=== PATIENT | male | born 1960 | race Caucasian/White ===

== ENCOUNTER 2022-09-07 17:20 | Inpatient (IN) | payer OTHER ==
[2022-09-07 17:53] VITALS: RESP 18; TEMP 97.7; BMI 23.6
[2022-09-07] MEDS ORDERED: BENZOCAINE/MENTHOL (CHLORASEPTIC ) LOZENGE MM PRN (18:57)
[2022-09-07] MEDS ORDERED: MAGNESIUM CITRATE 300 ML BOTTLE PO PRN (18:57)
[2022-09-07] MEDS ORDERED: chlordiazePOXIDE HCL 25 MG CAPSULE PO PRN (18:57)
[2022-09-07] MEDS ORDERED: METHOCARBAMOL 500 MG TABLET PO PRN (18:57)
[2022-09-07] MEDS ORDERED: NICOTINE 10 MG CARTRIDGE (INHALER) IH PRN (18:57)
[2022-09-07] MEDS ORDERED: MAGNESIUM HYDROX 2400MG/30ML ORAL SUSPENSION 30 ML CUP PO PRN (18:57)
[2022-09-07] MEDS ORDERED: DICYCLOMINE HCL 10 MG CAPSULE PO PRN (18:57)
[2022-09-07] MEDS ORDERED: ONDANSETRON *ODT* 4 MG TABLET SL PRN (18:57)
[2022-09-07] MEDS ORDERED: hydrOXYzine PAMOATE 25 MG CAPSULE (FP) PO PRN (18:57)
[2022-09-07] MEDS ORDERED: MAG HYDROX/AL HYDROX/SIMETH 30 ML UNIT-DOSE CUP PO PRN (18:57)
[2022-09-07] MEDS ORDERED: LOPERAMIDE HCL 2 MG CAPSULE PO PRN (18:57)
[2022-09-07] MEDS ORDERED: chlordiazePOXIDE HCL 25 MG CAPSULE ONE (20:32)
[2022-09-07] MEDS ORDERED: THIAMINE HCL 100 MG TABLET (FP) PO SCH (22:00)
[2022-09-07] MEDS ORDERED: MELATONIN 5 MG TABLETS PO SCH (22:00)
[2022-09-07] MEDS: chlordiazePOXIDE HCL 25 MG CAPSULE PO SCH (22:41)
[2022-09-08 05:17] VITALS: BP 153/114; PULSE 114
[2022-09-08] MEDS: chlordiazePOXIDE HCL 25 MG CAPSULE PO SCH ×2 (06:24→10:53)
[2022-09-08] MEDS ORDERED: NICOTINE 7 MG/24 HOURS TOPICAL PATCH TD SCH (10:00)
[2022-09-08] MEDS ORDERED: PRENATAL VITAMINS W/ FOLIC ACID TABLET (FP) PO SCH (10:00)
[2022-09-09] MEDS ORDERED: chlordiazePOXIDE HCL 25 MG CAPSULE PO SCH (05:00)
[2022-09-10] MEDS ORDERED: chlordiazePOXIDE HCL 10 MG CAPSULE PO PRN
[2022-09-10] MEDS ORDERED: chlordiazePOXIDE HCL 10 MG CAPSULE PO SCH (05:00)
[2022-09-11] MEDS ORDERED: chlordiazePOXIDE HCL 10 MG CAPSULE PO SCH (05:00)
[2022-09-12] MEDS ORDERED: chlordiazePOXIDE HCL 10 MG CAPSULE PO ONE (05:00)
== END 2022-09-08 15:35 | disposition short-term general hospital (02) | DRG 775 ==
LOC: YASAS 17:20 → Y6N 20:22
PROVIDERS: ADMIT Allergy & Immunology; ATTEND Surgery
PROC: HZ2ZZZZ Detoxification Services for Substance Abuse Treatment (ICD-10-PCS; principal; 2022-09-07)
DX: F10.230 Alcohol dependence with withdrawal, uncomplicated (principal); F17.210 Nicotine dependence, cigarettes, uncomplicated; I10 Essential (primary) hypertension; M54.50 Low back pain, unspecified; G89.29 Other chronic pain; R29.6 Repeated falls; S59.901A Unspecified injury of right elbow, initial encounter; S69.92XA Unspecified injury of left wrist, hand and finger(s), initial encounter; W19.XXXA Unspecified fall, initial encounter; Y92.230 Patient room in hospital as the place of occurrence of the external cause; Y93.89 Activity, other specified; Z91.81 History of falling
CPT/HCPCS: C9803-CS; U0003; U0005

== ENCOUNTER 2022-09-08 06:06 | Inpatient (IN) | payer OTHER ==
[2022-09-08 06:18] VITALS: BMI 24.3
[2022-09-08] MEDS ORDERED: chlordiazePOXIDE HCL 25 MG CAPSULE ONE ×3 (08:04→20:59)
[2022-09-08] MEDS ORDERED: chlordiazePOXIDE HCL 25 MG CAPSULE PO ONE ×3 (09:08→15:08)
[2022-09-08 09:35] LABS: BASO % 2.1 % (0-2.0); EOS % 0.4 % (0-4.5); HEMATOCRIT 32.2 % (35.4-49); HEMOGLOBIN 10.9 GM/dL (11.7-16.9); LYMPH % 11.9 % (8-40); MCH 34.2 pg (25.7-33.7); MCHC 33.9 g/dl (32.0-35.9); MEAN CELL VOLUME 100.7 fl (80-96); MEAN PLT VOLUME 9.7 fl (7.5-11.1); MONO % 15.9 % (3.8-10.2); NEUT % 69.7 % (42.8-82.8); PLATELET COUNT 202 10^3/uL (134-434)
[2022-09-08 09:42] LABS: INR 1.02 (0.83-1.09); PROTHROMBIN TIME (PATIENT) 11.7 SEC (9.7-13.0)
[2022-09-08 09:45] LABS: ACTIVATED PTT 34.8 SECONDS (25.2-36.5)
[2022-09-08 09:56] LABS: ALBUMIN 4.2 g/dl (3.4-5.0); BLOOD UREA NITROGEN 55.8 mg/dL (7-18); CALCIUM 9.6 mg/dL (8.5-10.1); MAGNESIUM 2.5 mg/dL (1.8-2.4)
[2022-09-08 09:59] LABS: CREATININE 1.7 mg/dL (0.55-1.3); PHOSPHOROUS 3.3 mg/dL (2.5-4.9)
[2022-09-08 10:00] LABS: BILIRUBIN,TOTAL 1.4 mg/dL (0.2-1)
[2022-09-08 10:02] LABS: EPI CELLS 4 /uL (0-25.1); HYALINE CASTS 2 /uL (0-3.1); TOT PROT 8.8 g/dl (6.4-8.2); URINE BACTERIA 3 /uL (0-1359); URINE RBC 35 /uL (0-23.9); URINE WBC 3 /uL (0-25.8)
[2022-09-08 10:06] LABS: URINE APPEARANCE Clear; URINE BILIRUBIN 1+ (NEGATIVE); URINE COLOR Yellow; URINE GLUCOSE (UA) Negative (NEGATIVE); URINE KETONE 1+ (NEGATIVE); URINE LEUK ESTERASE Negative (NEGATIVE); URINE NITRITE Negative (NEGATIVE); URINE PROTEIN 1+ (NEGATIVE)
[2022-09-08] MEDS ORDERED: diazePAM CARPU-JECT 10 MG/2 ML DISP.SYRIN ONE ×2 (11:12→11:14)
[2022-09-08] MEDS ORDERED: diazePAM CARPU-JECT 10 MG/2 ML DISP.SYRIN IVPUSH ONE (12:39)
[2022-09-08 13:10] VITALS: TEMP 98
[2022-09-08] MEDS ORDERED: LACTATED RINGERS SOLUTION 1000 ML INFUS.BAG IV ONE (15:05)
[2022-09-08] MEDS ORDERED: FOLIC ACID INJECTION - 1 MG, THIAMINE HCL 100 MG, MULTIVIT INJECTION ADULT 10 ML in SOD... IVPB ONE (15:06)
[2022-09-08] MEDS ORDERED: chlordiazePOXIDE HCL 25 MG CAPSULE PO SCH ×2 (17:00→21:00)
[2022-09-08] MEDS ORDERED: LORazepam 2 MG/ML SDV VIAL IVPUSH ONE (20:39)
[2022-09-08] MEDS ORDERED: diphenhydrAMINE HCL 25 MG CAPSULE (FP) PO ONE (20:58)
[2022-09-08 21:06] VITALS: BP 165/108; PULSE 108; RESP 20
[2022-09-08] MEDS ORDERED: HEPARIN NA (PORCINE) 5,000 UNITS/ML 1ML VIAL SQ SCH (22:00)
[2022-09-08] MEDS ORDERED: diphenhydrAMINE HCL 25 MG CAPSULE (FP) PO SCH (22:00)
[2022-09-09] MEDS ORDERED: THIAMINE HCL 200 MG/2 ML VIAL IM SCH (10:00)
[2022-09-09] MEDS ORDERED: FLUoxetine HCL 20 MG CAPSULE PO SCH (10:00)
[2022-09-09] MEDS ORDERED: FOLIC ACID 1 MG TABLET (FP) PO SCH (10:00)
[2022-09-09 12:20] LABS: BASO % 0.8 % (0-2.0); EOS % 2.1 % (0-4.5); HEMATOCRIT 33.2 % (35.4-49); HEMOGLOBIN 10.8 GM/dL (11.7-16.9); LYMPH % 14.4 % (8-40); MCH 33.2 pg (25.7-33.7); MCHC 32.6 g/dl (32.0-35.9); MEAN CELL VOLUME 101.8 fl (80-96); MEAN PLT VOLUME 10.1 fl (7.5-11.1); MONO % 16.7 % (3.8-10.2); PLATELET COUNT 209 10^3/uL (134-434); RBC 3.26 M/mm3 (4.00-5.60); RDW 14.9 % (11.9-15.9); WHITE BLOOD COUNT 7.6 K/mm3 (4.0-10.0)
[2022-09-09 12:47] LABS: CALCIUM 9.4 mg/dL (8.5-10.1)
[2022-09-09 12:48] LABS: ALBUMIN 3.8 g/dl (3.4-5.0); BLOOD UREA NITROGEN 33.5 mg/dL (7-18)
[2022-09-09 12:51] LABS: CREATININE 1.3 mg/dL (0.55-1.3)
== END 2022-09-08 23:00 | disposition left against medical advice (07) | DRG 770 ==
LOC: JER 06:06 → JERBED 15:32
PROVIDERS: ADMIT Internal Medicine; ATTEND Internal Medicine
DX: F10.230 Alcohol dependence with withdrawal, uncomplicated (principal); I10 Essential (primary) hypertension; K70.9 Alcoholic liver disease, unspecified; R29.6 Repeated falls; R94.5 Abnormal results of liver function studies
CPT/HCPCS: 0241U-QW; 36415; 70450-TC; 71046-TC-FY; 73070-TC-RT-FY; 73130-TC-LT-FY; 73140-TC-LT-FY; 76700-TC; 80053; 81003; 82140; 82962; 83735; 84100; 84443; 84484; 85025; 85610; 85730; 87086; 99285-25

== ENCOUNTER 2022-09-09 00:57 | Inpatient (IN) | payer OTHER ==
[2022-09-09] MEDS ORDERED: SODIUM CHLORIDE 0.9% 1000 ML INFUS.BAG IV ONE (01:20)
[2022-09-09 02:36] LABS: BASO % 0.5 % (0-2.0); EOS % 1.4 % (0-4.5); HEMATOCRIT 31.4 % (35.4-49); HEMOGLOBIN 10.5 GM/dL (11.7-16.9); LYMPH % 9.4 % (8-40); MCH 33.9 pg (25.7-33.7); MCHC 33.6 g/dl (32.0-35.9); MEAN CELL VOLUME 100.9 fl (80-96); MEAN PLT VOLUME 9.8 fl (7.5-11.1); MONO % 15.2 % (3.8-10.2); NEUT % 73.5 % (42.8-82.8); PLATELET COUNT 201 10^3/uL (134-434); RBC 3.11 M/mm3 (4.00-5.60); RDW 14.9 % (11.9-15.9); WHITE BLOOD COUNT 7.3 K/mm3 (4.0-10.0)
[2022-09-09 03:04] LABS: CHLORIDE 104 mmol/L (98-107); SODIUM 137 mmol/L (136-145)
[2022-09-09 03:06] LABS: ALBUMIN 3.6 g/dl (3.4-5.0); ANION GAP 11 MMOL/L (8-16); BLOOD UREA NITROGEN 40.4 mg/dL (7-18); CALCIUM 9.2 mg/dL (8.5-10.1); CO2 22 mmol/L (21-32); GLUCOSE,RANDOM 112 mg/dL (74-106)
[2022-09-09 03:09] LABS: CREATININE 1.3 mg/dL (0.55-1.3); SGOT/AST 195 U/L (15-37); SGPT/ALT 107 U/L (13-61)
[2022-09-09 03:10] LABS: TOT PROT 8.2 g/dl (6.4-8.2)
[2022-09-09 03:11] LABS: BILIRUBIN,TOTAL 1.1 mg/dL (0.2-1)
[2022-09-09 03:13] LABS: ALK PHOS 135 U/L (45-117)
[2022-09-09] MEDS ORDERED: FOLIC ACID INJECTION - 1 MG, THIAMINE HCL 100 MG, MULTIVIT INJECTION ADULT 10 ML in SOD... IVPB ONE (04:11)
[2022-09-09] MEDS ORDERED: LORazepam 1 MG TABLET PO PRN (04:14)
[2022-09-09] MEDS ORDERED: LORazepam 2 MG TABLET PO SCH (05:00)
[2022-09-09] MEDS: HEPARIN NA (PORCINE) 5,000 UNITS/ML 1ML VIAL SQ SCH ×3 (07:19→21:02)
[2022-09-09 08:39] VITALS: BMI 20.9
[2022-09-09] MEDS: NICOTINE 14 MG/24 HOURS TOPICAL PATCH TD SCH (09:14)
[2022-09-09] MEDS: FOLIC ACID 1 MG TABLET (FP) PO SCH (09:14)
[2022-09-09] MEDS ORDERED: THIAMINE HCL 100 MG TABLET (FP) PO SCH (10:00)
[2022-09-09 10:11] LABS: MAGNESIUM 2.3 mg/dL (1.8-2.4)
[2022-09-09 10:13] LABS: IRON SERUM 248 ug/dL (50-175); TOTAL IRON BINDING CAPACITY 449 ug/dL (250-450)
[2022-09-09] MEDS ORDERED: LORazepam 1 MG TABLET PO SCH (12:02)
[2022-09-09] MEDS: LORazepam 1 MG TABLET PO SCH ×3 (12:08→22:46)
[2022-09-09 12:46] LABS: MAGNESIUM 2.2 mg/dL (1.8-2.4)
[2022-09-09 12:49] LABS: PHOSPHOROUS 2.2 mg/dL (2.5-4.9)
[2022-09-09] MEDS: THIAMINE HCL 200 MG/2 ML VIAL IVPB SCH (13:45)
[2022-09-10] MEDS: LORazepam 1 MG TABLET PO SCH ×4 (04:54→22:04)
[2022-09-10] MEDS: HEPARIN NA (PORCINE) 5,000 UNITS/ML 1ML VIAL SQ SCH ×3 (05:59→21:37)
[2022-09-10 09:48] LABS: ALBUMIN 3.6 g/dl (3.4-5.0); CALCIUM 9.1 mg/dL (8.5-10.1)
[2022-09-10 09:49] LABS: BLOOD UREA NITROGEN 34.1 mg/dL (7-18); CREATININE 1.5 mg/dL (0.55-1.3)
[2022-09-10 09:50] LABS: BILIRUBIN,TOTAL 0.8 mg/dL (0.2-1); TOT PROT 8.1 g/dl (6.4-8.2)
[2022-09-10] MEDS: MULTIVITAMINS (DAILY MVI) TABLET (FP) PO SCH (11:07)
[2022-09-10] MEDS: FOLIC ACID 1 MG TABLET (FP) PO SCH (11:07)
[2022-09-10] MEDS: NICOTINE 14 MG/24 HOURS TOPICAL PATCH TD SCH (11:08)
[2022-09-10] MEDS: THIAMINE HCL 200 MG/2 ML VIAL IVPB SCH (11:08)
[2022-09-10 15:35] LABS: EPI CELLS 5 /uL (0-25.1); HYALINE CASTS 1 /uL (0-3.1); PH,URINE 5.5 (5.0-8.0); URINE APPEARANCE CLEAR; URINE BACTERIA 110 /uL (0-1359); URINE BILIRUBIN NEGATIVE (NEGATIVE); URINE COLOR DK YELLOW; URINE GLUCOSE (UA) NEGATIVE (NEGATIVE); URINE KETONE 1+ (NEGATIVE); URINE LEUK ESTERASE NEGATIVE (NEGATIVE); URINE NITRITE NEGATIVE (NEGATIVE); URINE PROTEIN 2+ (NEGATIVE); URINE RBC 13 /uL (0-23.9); URINE WBC 3 /uL (0-25.8)
[2022-09-10 16:07] LABS: COCAINE, UR NEGATIVE (NEGATIVE); OPIATES, URI NEGATIVE (NEGATIVE); URINE BARBITURATES NEGATIVE (NEGATIVE)
[2022-09-10 16:08] LABS: METHADONE, UR NEGATIVE (NEGATIVE); PHENCYCLIDINE,URINE NEGATIVE (NEGATIVE); URINE AMPHETAMINES NEGATIVE (NEGATIVE)
[2022-09-10 16:50] LABS: URINE BENZODIAZEPINES POSITIVE (NEGATIVE)
[2022-09-10] MEDS ORDERED: SODIUM CHLORIDE 1,000 ML IV SCH (19:00)
[2022-09-11] MEDS ORDERED: LORazepam 0.5 MG TABLET PO PRN
[2022-09-11] MEDS: LORazepam 0.5 MG TABLET PO SCH ×2 (04:38→10:43)
[2022-09-11] MEDS: HEPARIN NA (PORCINE) 5,000 UNITS/ML 1ML VIAL SQ SCH ×2 (05:40→15:47)
[2022-09-11] MEDS: FOLIC ACID 1 MG TABLET (FP) PO SCH (10:43)
[2022-09-11] MEDS: MULTIVITAMINS (DAILY MVI) TABLET (FP) PO SCH (10:43)
[2022-09-11] MEDS: NICOTINE 14 MG/24 HOURS TOPICAL PATCH TD SCH (10:43)
[2022-09-11] MEDS: THIAMINE HCL 200 MG/2 ML VIAL IVPB SCH (10:44)
[2022-09-11 14:12] VITALS: BP 141/88; PULSE 94; RESP 18; TEMP 98.1
[2022-09-12] MEDS ORDERED: LORazepam 0.5 MG TABLET PO ONE (05:00)
== END 2022-09-11 15:41 | disposition home or self-care (01) | DRG 775 ==
LOC: JER 00:57 → JERBED 02:03 → J6S 05:51
PROVIDERS: ADMIT Internal Medicine; ATTEND Internal Medicine
PROC: HZ2ZZZZ Detoxification Services for Substance Abuse Treatment (ICD-10-PCS; principal; 2022-09-09)
DX: F10.239 Alcohol dependence with withdrawal, unspecified (principal); E43 Unspecified severe protein-calorie malnutrition; Z68.21 Body mass index [BMI] 21.0-21.9, adult; I10 Essential (primary) hypertension; M62.50 Muscle wasting and atrophy, not elsewhere classified, unspecified site; S63.251A Unspecified dislocation of left index finger, initial encounter; E83.39 Other disorders of phosphorus metabolism; R64 Cachexia; W19.XXXA Unspecified fall, initial encounter; Y93.9 Activity, unspecified; Y92.89 Other specified places as the place of occurrence of the external cause; Y99.9 Unspecified external cause status
CPT/HCPCS: 36415; 70450-TC; 76705-TC; 80053; 80307; 81003; 82272; 82550; 82553; 82728; 83540; 83550; 83735; 84100; 84466; 85025; 85045; 86704; 86709; 86803; 87340; 87517; 93005; 93010; 97116-GP; 97162-GP; 99285-25; J1644